=== PATIENT | male | born 1940 | race Caucasian/White ===

== ENCOUNTER → 2020-08-28 | Outpatient (CLI) | payer OTHER | LOC: HYPER 11:07 | PROVIDERS: ATTEND Emergency Medicine | DX: S90.412A Abrasion, left great toe, initial encounter (principal); S90.812A Abrasion, left foot, initial encounter; S90.415A Abrasion, left lesser toe(s), initial encounter; E11.621 Type 2 diabetes mellitus with foot ulcer; L97.521 Non-pressure chronic ulcer of other part of left foot limited to breakdown of skin; I87.2 Venous insufficiency (chronic) (peripheral); E11.51 Type 2 diabetes mellitus with diabetic peripheral angiopathy without gangrene; E11.42 Type 2 diabetes mellitus with diabetic polyneuropathy; R26.89 Other abnormalities of gait and mobility; M62.81 Muscle weakness (generalized); R60.0 Localized edema; I25.10 Atherosclerotic heart disease of native coronary artery without angina pectoris; C61 Malignant neoplasm of prostate; C78.00 Secondary malignant neoplasm of unspecified lung; C79.51 Secondary malignant neoplasm of bone; M19.90 Unspecified osteoarthritis, unspecified site; I11.0 Hypertensive heart disease with heart failure; I50.9 Heart failure, unspecified; M85.80 Other specified disorders of bone density and structure, unspecified site; I25.700 Atherosclerosis of coronary artery bypass graft(s), unspecified, with unstable angina pectoris; E03.9 Hypothyroidism, unspecified; M10.9 Gout, unspecified; I48.91 Unspecified atrial fibrillation; E66.9 Obesity, unspecified; G47.30 Sleep apnea, unspecified; G47.00 Insomnia, unspecified; F41.9 Anxiety disorder, unspecified; Z87.891 Personal history of nicotine dependence; Z79.84 Long term (current) use of oral hypoglycemic drugs; Z90.49 Acquired absence of other specified parts of digestive tract; Z98.41 Cataract extraction status, right eye; Z68.41 Body mass index [BMI] 40.0-44.9, adult; Z87.01 Personal history of pneumonia (recurrent); Z79.899 Other long term (current) drug therapy; Z79.01 Long term (current) use of anticoagulants; Z79.82 Long term (current) use of aspirin; Z95.5 Presence of coronary angioplasty implant and graft; Z90.89 Acquired absence of other organs; Z98.52 Vasectomy status; X58.XXXA Exposure to other specified factors, initial encounter; Y93.89 Activity, other specified; Y92.89 Other specified places as the place of occurrence of the external cause; Y99.8 Other external cause status ==